=== PATIENT | female | born 1965 | race Caucasian/White ===

== ENCOUNTER → 2020-09-03 | Outpatient (CLI) | payer OTHER ==
--- NOTE | 2020-09-03 16:08 | RAD ---
MRI STUDY OF THE LEFT SHOULDER WITHOUT CONTRAST Clinical indications: Left shoulder pain. Decreased range of motion. No known injury. TECHNIQUE: Noncontrast MRI sequences of the left shoulder were performed in all 3 planes. FINDINGS: There is increased signal within the supraspinatus and infraspinatus tendons consistent wit h tendinosis. There is a high-grade partial articular surface tear of the lateral aspect of the supra spinatus tendon. There is a thin layer of intact bursal side fibers still present. Tendinosis of the lateral aspect of the subscapularis tendon is seen. No tear of this tendon is seen. The tendon of the long head of the biceps is intact. No muscle atrophy or edema is seen. 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 Type III acromial process is seen. These findings may impinge the acromial humeral space. Chronic cystic change of the lateral aspect of the humeral head i s seen which may be secondary to chronic impingement. No fracture or marrow infiltrative process is s een. There is degenerative increased signal within the superior aspect of glenoid labrum. No labral t ear is seen otherwise. No paralabral ganglion cyst or spinoglenoid notch ganglion cyst is seen. Small glenohumeral joint effusion is seen. IMPRESSION: High-grade partial articular surface tear of the lateral aspect of the supraspinatus tend on with only a thin layer of bursal side intact fibers still present. There is fluid within the subde ltoid and subacromial bursa. This is suspicious for a full-thickness tear although not definitely see n in this MRI study. It is possible that this could represent bursitis as well. Impingement of the acromial humeral space. Electronically signed by: Shemar Wheat MD (09/03/2020 4:05 PM) [id number]
== END ==
LOC: MRI 11:02
PROVIDERS: ATTEND Orthopaedic Surgery
DX: M75.42 Impingement syndrome of left shoulder (principal)
CPT/HCPCS: 73221

== ENCOUNTER 2020-10-22 08:26 | Day surgery (SDC) | payer OTHER ==
[~2020-10-22] VITALS: Ht 157.5 cm; Wt 86.3 kg
[~2020-10-22 08:26] MED LIST: BUPR150T15 PO; CALC-58 PO; DEXAMETHASONE SOD PHOS 4 MG/ML VIAL ONE; DULO60CA6 PO; ESTR0.5T3 PO; HYDROmorphone 2 MG/ML VIAL IVP PRN; IBUP-1060 PO; IV RINGERS,LACTATED 1000ML 1,000 ML IV SCH; LIDOCAINE 2% PF 5 ML VIAL. ONE; MORPHINE SULFATE 2 MG/ML INJ. IVP PRN; MULT-445 PO; ONDANSETRON PF 4 MG/2 ML VIAL. ONE; PANT20TA2 PO; PROCHLORPERAZINE 10 MG/2 ML VIAL. IVP PRN; PROPOFOL 10 MG/ML (20ML) VIAL. IV ONE; fentaNYL PF VIAL 100 MCG/2 ML VIAL IVP PRN; fentaNYL PF VIAL 100 MCG/2 ML VIAL ONE
[2020-10-22] MEDS ORDERED: BUPIVACAINE-EPI 0.5%-1:200000 MPF 30 ML VIAL. ONE (08:36)
[2020-10-22] MEDS ORDERED: HYDR-2765 PO (08:41)
--- NOTE | 2020-10-22 08:43 | DISCH ---
DISCHARGE INSTRUCTIONS Condition on Discharge Condition on Discharge: Stable Activity After Discharge Activity Instructions for Disc: Progressive ambulation Weight Bearing Status after Di: As tolerated Diet after Discharge Diet after Discharge: Regular Wound Incision Care Wound/Incision Care: Ice to area for comfort, Keep wound elevated, Change dressing Contacting the after DC Call your doctor for: Concerns you may have Follow-Up Follow up with: Dr. Mitchell or Kristin 7 to 10 days RAMA MITCHELL MD Oct 22, 2020 08:43
[2020-10-22 08:46] VITALS: BP 113/71
[2020-10-22] MEDS ORDERED: ePHEDrine PF IN SALINE 50 MG/10 ML SYRINGE. IV ONE (10:46)
[2020-10-22] MEDS ORDERED: HYDROcodone/APAP 7.5/325MG 1 TAB TABLET PO ONE (12:15)
[2020-10-22 12:35] VITALS: BP 109/65
--- NOTE | 2020-10-22 13:15 | PDOC4 ---
Operative Note Operative Note Date of surgery: 10/22/2020 Preoperative diagnosis: Right knee medial meniscus tear Postoperative diagnosis: Same plus chondral flap tear medial femoral condyle Operative procedure: Right knee arthroscopy partial medial meniscectomy and chondroplasty medial femoral condyle Surgeon: Paula Assist: Dmitri Fulton blood donor unit assistant Anesthesia: General Estimated blood loss: 5 cc Complications: None Operative indications: Patient is a 55-year-old female with a documented medial meniscus tear and posterior medial joint line pain worse with twisting. She was previously evaluated by Dr. Becker and we covered thoroughly today the anatomy of the meniscus the specific injury unlikelihood of it healing due to blood supply issues and the possibility of ongoing damage because of the meniscus being able to flip backwards often causing sharp intermittent pain. I went over with her that typically we treat symptomatic cases of this arthroscopically removing the damaged unstable portion of the meniscus and cautioning that I cannot undo any type of degenerative change or symptoms associated with that condition. We also covered the possibility of infection continued pain nerve or blood vessel damage medical or other anesthetic complications among others she wishes to proceed with surgical evaluation and treatment Operative text: Patient was identified procedure verified patient placed in the supine position on the operative table. After adequate amounts of general a nesthesia were administered the right lower extremity was prepped and draped in standard sterile fashion with a right thigh tourniquet. After timeout was performed patient procedure identified and verified the right lower extremity was exsanguinated by Esmarch bandage tourniquet inflated to 250 mmHg and a lateral portal was established medial portal established using spinal needle localization and the knee joint was systematically examined. She was found to have a mainly radial with some complex components tear of the posterior horn medial meniscus which involved approximately the inner 50% of the meniscus. The unstable flap was removed and radiusing of the remaining meniscus carried out to avoid additional stress risers. She also had a chondral flap tear of the medial femoral condyle partial-thickness in nature which was trimmed back to stable tissue with the arthroscopic shaver. ACL and lateral meniscus were probed and found to be intact. No loose bodies noted in the gutters or suprapatellar pouch. Knee joint was drained of arthroscopic fluid portals closed with nylon suture. Portals and fat pad area were infused with half percent plain Marcaine sterile dressings were applied patient was returned to recovery room in stable condition having tolerated procedure well. Dmitri Fulton 1st assist assisted and patient positioning prepping draping extremity positioning for the arthroscopy closure and dressings RAMA ERWIN MD Oct 22, 2020 13:15
== END 2020-10-22 13:05 | disposition home or self-care (01) ==
LOC: SURG 08:26
PROVIDERS: ATTEND Orthopaedic Surgery
DX: S83.241A Other tear of medial meniscus, current injury, right knee, initial encounter (principal); K21.9 Gastro-esophageal reflux disease without esophagitis; F32.9 Major depressive disorder, single episode, unspecified; Z90.710 Acquired absence of both cervix and uterus; Z98.890 Other specified postprocedural states; Z87.891 Personal history of nicotine dependence; Z79.899 Other long term (current) drug therapy; X58.XXXA Exposure to other specified factors, initial encounter; Y93.89 Activity, other specified; Y92.89 Other specified places as the place of occurrence of the external cause; Y99.8 Other external cause status
CPT/HCPCS: 29881; 97161; A4930; J0690; J1100; J2405; J2704; J3010

== ENCOUNTER 2021-01-14 08:48 | Day surgery (SDC) | payer OTHER ==
[~2021-01-14] VITALS: Ht 157.5 cm; Wt 83.0 kg
[~2021-01-14 08:48] MED LIST changes: -DEXAMETHASONE SOD PHOS 4 MG/ML VIAL ONE; -DULO60CA6 PO; +DULO60CA7 PO; +HYDR-2765 PO; -LIDOCAINE 2% PF 5 ML VIAL. ONE; -ONDANSETRON PF 4 MG/2 ML VIAL. ONE; -PROPOFOL 10 MG/ML (20ML) VIAL. IV ONE; -fentaNYL PF VIAL 100 MCG/2 ML VIAL ONE
[2021-01-14] MEDS ORDERED: DEXAMETHASONE SOD PHOS 4 MG/ML VIAL ONE ×2 (10:01→12:56)
[2021-01-14] MEDS ORDERED: FAMOTIDINE 20 MG/2 ML VIAL ONE (10:01)
[2021-01-14] MEDS ORDERED: MIDAZOLAM HCL/PF 2 MG/2 ML VIAL. ONE (10:01)
[2021-01-14] MEDS ORDERED: ROPIVacaine 0.5% PF 20 ML VIAL. ONE (10:07)
[2021-01-14] MEDS ORDERED: SCOPOLAMINE 1.5MG PATCH. TD SCH (10:15)
[2021-01-14] MEDS ORDERED: PROPOFOL 10 MG/ML (20ML) VIAL. IV ONE (10:52)
[2021-01-14] MEDS ORDERED: fentaNYL PF VIAL 100 MCG/2 ML VIAL ONE ×2 (10:52→11:53)
[2021-01-14] MEDS ORDERED: ONDANSETRON PF 4 MG/2 ML VIAL. ONE (10:52)
[2021-01-14] MEDS ORDERED: ROCURONIUM 50 MG/5 ML VIAL. ONE (10:52)
[2021-01-14] MEDS ORDERED: GLYCOPYRROLATE 1 MG/5 ML VIAL. ONE (13:14)
[2021-01-14] MEDS ORDERED: NEOSTIGMINE METHYLSULFATE 5 MG/5 ML SYRINGE. ONE (13:21)
[2021-01-14] MEDS ORDERED: OXYC-316 PO (14:07)
--- NOTE | 2021-01-14 14:11 | DISCH ---
DISCHARGE INSTRUCTIONS Condition on Discharge Condition on Discharge: Stable Activity After Discharge Activity Instructions for Disc: Other, see below Weight Bearing Status after Di: Non weight bearing Diet after Discharge Diet after Discharge: Regular Wound Incision Care Wound/Incision Care: Ice to area for comfort, Change dressing (remove dressing in 2 days may then shower) Community/Resources/Services Services at Discharge: PT EVALUATE & TREAT (passive rom of shoulder only. pendulum swings and fine motor use with elbow at side, eat write, type etc) Contacting the DR. after DC Call your doctor for: Concerns you may have Follow-Up Follow up with: Paula or Kristin 10 days RAMA ERWIN MD Jan 14, 2021 14:11
[2021-01-14] MEDS ORDERED: SEVOFLURANE > 120 MINUTES. IH ONE (14:26)
[2021-01-14 14:59] VITALS: BP 112/62
--- NOTE | 2021-01-14 21:22 | PDOC4 ---
Operative Note Operative Note Date of surgery: 01/14/2021 Preoperative diagnosis: Left supraspinatus tear and biceps anchor compromise Postoperative diagnosis: Same Operative procedure: Left shoulder arthroscopy arthroscopic rotator cuff repair and biceps tenodesis Surgeon: Paula Assist: Dmitri nguyen assist Anesthesia: General Estimated blood loss: 20 cc Complications: None Operative indications: Please see my orthopedic clinic note for detailed operative indications and note that we had covered the risks benefits postoperative course of potential surgical treatment including the possibility of nonhealing of the rotator cuff continued pain infection nerve or blood vessel damage medical other anesthetic complications among others and the typically long rehabilitation and recovery process. All her questions were answered she wishes to proceed with surgical evaluation and treatment Operative text: Patient was identified procedure verified patient placed in the supine position on the operating table. After adequate amounts of general anesthesia were administered plus a pre-existing scalene block, patient was placed in the decubitus position left side up all bony prominences were well- padded and the left shoulder was examined under anesthesia found to have full range of motion no instability. The left shoulder was then prepped and draped in standard sterile fashion placed into the arthroscopic arm casillas with a total of 10 pounds of traction and after timeout was performed patient procedure identified and verified a posterior portal was established an anterior portal established using spinal needle localization and the shoulder joint was systematically examined. She was found to have compromise of the biceps anchor and significant biceps fraying along its course to the bicipital groove and the biceps tendon was tagged with suture and tenotomized. Labrum was debrided back to stable tissue. Rotator cuff was suspicious for a tear at the distal supraspinatus and was confirmed by passing a monofilament suture with a spinal needle and locating this on the bursal side following adequate clearance of bursal tissue for visualization after making a lateral arthroscopic portal. While still in the joint, normal bare area of the humerus and glenohumeral cartilage as well as labral and capsuloligamentous structures were noted as well as normal insertion of the subscapularis. On the bursal side she was noted to have a full-thickness tear on the bursal side of the distal supraspinatus and the arthroscopic shaver was used to debride but not decorticate the rotator cuff footprint to a bleeding bony surface. A total of 1 double loaded juggernaut anchors was placed along the medial row and sutures placed in a simple fashion. Lateral row fixation was accomplished in a watertight manner using a 4.5 knotless peek suture anchor and the rotator cuff repair examined in all degrees of internal/external rotation. The joint was drained of arthroscopic fluid portals closed with nylon suture sterile dressings were applied patient was placed in an immobilizer return to recovery room in stable condition having tolerated procedure well. Dmitri hawkins was present for the procedure assisted in patient positioning prepping draping equipment positioning retraction closure and dressings RAMA ERWIN MD Jan 14, 2021 21:22
== END 2021-01-14 15:35 | disposition home or self-care (01) ==
LOC: SURG 08:48
PROVIDERS: ATTEND Orthopaedic Surgery
DX: M75.122 Complete rotator cuff tear or rupture of left shoulder, not specified as traumatic (principal); K21.9 Gastro-esophageal reflux disease without esophagitis; F32.9 Major depressive disorder, single episode, unspecified; Z90.710 Acquired absence of both cervix and uterus; Z98.890 Other specified postprocedural states; Z79.899 Other long term (current) drug therapy; Z87.891 Personal history of nicotine dependence; Z79.82 Long term (current) use of aspirin; Z88.2 Allergy status to sulfonamides; Z72.89 Other problems related to lifestyle
CPT/HCPCS: 29827; 29828; A4930; C1713; J0690; J1100; J2250; J2405; J2704; J2710; J2795; J3010; J3490